=== PATIENT | female | born 1965 | race Caucasian/White ===

== ENCOUNTER 2018-08-26 14:34 | Emergency (ER) | payer BC, OTHER ==
[~2018-08-26] VITALS: Ht 160 cm; Wt 122.5 kg
[2018-08-26] MEDS ORDERED: IBUPROFEN 800 MG (MOTRIN) TAB PO ONE (15:29)
--- NOTE | 2018-08-26 15:29 | Diagnostic Imaging Report ---
INDICATION: Right wrist injury, fell off tractor. FINDINGS: Three views of the right wrist show an impacted fracture of the distal radius involving the articular surface. There is a longitudinal component extending through the radial styloid. The distal component is offset anteriorly by half the width of the radial articular surface. The fracture is comminuted. There is also a fracture of the ulnar styloid. IMPRESSION: Comminuted transverse fracture of the distal radius with anterior displacement of the distal component. The fracture has a component extending to the articular surface. There is an associated ulnar styloid fracture. Dictated by: Dictated on workstation # [id number]
--- NOTE | 2018-08-26 15:40 | ED Upper Extremity ---
General Chief Complaint: Upper Extremity Stated Complaint: R WRIST INJ Nursing Triage Note: PT CO OF R WRIST PAIN STATES FELL AND HIT R WRIST ON TRACTOR. PT HAS SOME PAIN AND SWELLING IN R WRIST Nursing Sepsis Screen: No Definite Risk Source: patient, family Exam Limitations: no limitations History of Present Illness Date Seen by Provider: Aug 26, 2018 Time Seen by Provider: 15:19 Initial Comments Patient presents to ER by private conveyance with chief complaint of just prior to arrival she was getting down out of her tractor and she slipped and fell landing with her right hand against the tractor having some swelling and pain. She has put on ice but not required any Advil, Tylenol or other pain medicines. She is having no nausea or weakness or numbness. She has no previous history of injury to her wrist. No medical history. She does not have any allergies nor does she take any medicines. Allergies and Home Medications Allergies Coded Allergies: No Known Drug Allergies (Unverified , 08/26/18) Home Medications No Active Prescriptions or Reported Meds Patient Home Medication List Home Medication List Reviewed: Yes Review of Systems Constitutional: No chills, No diaphoresis EENTM: No ear discharge, No ear pain Respiratory: No cough, No short of breath Cardiovascular: No chest pain, No edema Past Nckthpy-Rrrfil-Bdzhmd Hx Patient Social History Alcohol Use: Denies Use Recreational Drug Use: No Smoking Status: Never a Smoker Recent Foreign Travel: No Contact w/Someone Who Travel: No Recent Infectious Disease Expo: No Recent Hopitalizations: No (PT DENIES HX) Past Medical History [employer] History: Menopausal Physical Exam Vital Signs Vital Signs - First Documented 08/26/18 15:00 Temp 97.2 Pulse 101 Resp 18 B/P (MAP) 149/106 (120) Pulse Ox 99 Capillary Refill : Less Than 3 Seconds Height, Weight, BMI Height: 5'3.00" Weight: 270lbs. oz. 122.686188ud; BMI Method:Stated General Appearance: WD/WN, no apparent distress HEENT: PERRL/EOMI, pharynx normal Neck: non-tender, full range of motion, normal inspection Cardiovascular: normal peripheral pulses, regular rate, rhythm, no edema Respiratory: no respiratory distress, no accessory muscle use Wrist: Yes deformity, Yes pain, Yes soft tissue tenderness, Yes swelling Hand: normal inspection (right), non-tender, no evidence of injury, Right ( motor and sensation are intact) Neurologic/Tendon: normal sensation, normal motor functions Neurologic/Psychiatric: alert, normal mood/affect, oriented x 3 Skin: normal color, warm/dry Progress/Results/Core Measures Results/Orders Vital Signs/I&O 08/26/18 15:00 Temp 97.2 Pulse 101 Resp 18 B/P (MAP) 149/106 (120) Pulse Ox 99 Blood Pressure Mean: 120 Progress Progress Note : Time: 15:41 Progress Note She has consented to 800 mg of Advil to take the edge off. She is using ice Diagnostic Imaging Diagonstic Imaging: Xray Comments NAME: [facility] REC#: [id number] PT STATUS: REG ER : 1965 PHYSICIAN: RED CHARLTON ADMIT DATE: 08/26/18/ER Draft Date of Exam:08/26/18 WRIST, RIGHT, 3 VIEWS OR MORE INDICATION: Right wrist injury, fell off tractor. FINDINGS: Three views of the right wrist show an impacted fracture of the distal radius involving the articular surface. There is a longitudinal component extending through the radial styloid. The distal component is offset anteriorly by half the width of the radial articular surface. The fracture is comminuted. There is also a fracture of the ulnar styloid. IMPRESSION: Comminuted transverse fracture of the distal radius with anterior displacement of the distal component. The fracture has a component extending to the articular surface. There is an associated ulnar styloid fracture. Dictated on workstation # [id number] Dict: 08/26/18 1521 Trans: 08/26/18 1528 [id number] Interpreted by: BEN WARNER MD Electronically signed by: Reviewed: Reviewed by Me Consults : Consulting Physician: KRYSTA PEACE DO Consults Notes We discussed the case and he like to see the patient in a splint and in his office tomorrow. Departure Impression Primary Impression: Radial head fracture, closed Qualified Codes: S52.121A - Displaced fracture of head of right radius, initial encounter for closed fracture Additional Impression: Fracture of ulnar styloid Qualified Codes: S52.611A - Displaced fracture of right ulna styloid process, initial encounter for closed fracture Disposition: 01 HOME, SELF-CARE Condition: Stable Departure-Patient Inst. Decision time for Depature: 15:41 Referrals: UNKNOWN (PCP) Primary Care Physician KRYSTA PEACE DO Patient Instructions: Wrist Fracture (DC) Add. Discharge Instructions: Use Tylenol 1000 mg as well as ibuprofen 800 mg every 8 hours each as needed for pain. Should also be applying ice at least 20 minutes every 2-4 hours for the first 3 days. Keep the wrist elevated above the level of your heart when possible to help keep the swelling down. Wear the splint to help protect the wrist from being hit or moving. Follow-up by calling Dr. Peace at his clinic at [facility] [place] and request an appointment for tomorrow. If you have worsening pain or lose sensation in your hand you should return to the ER for immediate evaluation. If your pain is still on tolerable you can take one tablet of the hydrocodone every 6 hours as needed. Hydrocodone will cause drowsiness as well as constipation and should be combined with MiraLAX. All discharge instructions reviewed with patient and/or family. Voiced understanding. Scripts Hydrocodone Bit/Acetaminophen (Hydrocodone/Acetaminophen 5/325mg Tablet) 1 Tab Tab 1 EACH PO Q6H PRN for PAIN-MODERATE MDD 10 for 7 Days, #10 TAB 0 Refills Prov: LUCIAN LANDRY 08/26/18 Copy Copies To 1: KRYSTA PEACE TITUS J Aug 26, 2018 15:40
[2018-08-26] MEDS ORDERED: ACHD5005 PO (15:45)
[2018-08-26 16:09] VITALS: BP 149/106
== END 2018-08-26 16:09 | disposition home or self-care (01) ==
LOC: ER 14:35
DX: S52.591A Other fractures of lower end of right radius, initial encounter for closed fracture (principal); S52.611A Displaced fracture of right ulna styloid process, initial encounter for closed fracture; V84.4XXA Person injured while boarding or alighting from special agricultural vehicle, initial encounter
CPT/HCPCS: 29125; 73110